=== PATIENT | male | born 1960 ===

== ENCOUNTER → 2022-08-16 17:00 | Outpatient (CLI) | payer BC, SELFPAY ==
--- NOTE | ~2022-08-16 | MR_ITS ---
EXAMINATION: MR lumbar spine wo con DATE: 08/16/2022 17:41 INDICATION: Acute right-sided low back pain. Right-sided sciatica. TECHNIQUE: Magnetic resonance imaging (MRI) of the lumbar spine was performed without intravenous con trast. Sequences included sagittal T2-weighted FSE, sagittal T2-weighted FS FSE, sagittal T1-weighted FSE, and axial T2-weighted FSE. COMPARISON: None FINDINGS: Bone alignment is normal. There is mild chronic anterior wedging of T12-L2 vertebral bodies . There are Schmorl's nodes at multiple levels. There is mildly decreased disc height at L4-L5 and mo derately decreased disc height at L5-S1. The distal spinal cord signal intensity is normal. The conus medullaris is at L1. The following disc levels are specifically discussed: L1-L2: The disc does not extend beyond the endplate margin. There is mild bilateral facet joint osteo arthritis. There is no neural foraminal stenosis. There is no central canal stenosis. L2-L3: The disc is bulging. There is mild bilateral facet joint osteoarthritis. There is mild bilater al neural foraminal stenosis. There is mild central canal stenosis. L3-L4: The disc is bulging. There is severe bilateral facet joint osteoarthritis. There is mild bilat eral neural foraminal stenosis. There is mild central canal stenosis. L4-L5: The disc is bulging. There is severe bilateral facet joint osteoarthritis. There is moderate b ilateral neural foraminal stenosis. There is mild central canal stenosis. L5-S1: The disc is bulging and has an annular fissure. There is severe bilateral facet joint osteoart hritis. There is mild right and moderate left neural foraminal stenosis. There is mild central canal stenosis. IMPRESSION: 1. Moderate lumbar spondylosis. Reviewed, dictated and finalized at location A. CARE PROVIDER
== END ==
PROVIDERS: PCP Family Medicine; Visit Provider Family Medicine
DX: M54.41 Lumbago with sciatica, right side (principal); M51.36 Other intervertebral disc degeneration, lumbar region; M47.896 Other spondylosis, lumbar region
CPT/HCPCS: 72148

== ENCOUNTER → 2022-11-02 13:02 | Outpatient (CLI) | payer BC, SELFPAY ==
--- NOTE | ~2022-11-02 | XR_ITS ---
XR hip BI 2V w AP pelvis DATE: 11/02/2022 13:25 INDICATION: Chronic bilateral hip pain TECHNIQUE: AP pelvis. AP and lateral views of each hip. COMPARISON: None FINDINGS: There is severe bilateral hip joint space narrowing and very prominent bilateral spurring o f the hips consistent with severe bilateral hip osteoarthritis. Diffuse osteopenia. The pubic symphysis and sacral iliac joints are intact. No pelvic fracture or bon e destruction. No fracture or dislocation or bone destruction of either hip is evident. IMPRESSION: Severe bilateral hip osteoarthritis Reviewed, dictated and finalized at location L. D DRIVER
== END ==
PROVIDERS: PCP Family Medicine; Visit Provider Physical Medicine & Rehabilitation
DX: M16.0 Bilateral primary osteoarthritis of hip (principal)
CPT/HCPCS: 73521